=== PATIENT | female | born 1970 | race Two or more races ===

== ENCOUNTER → 2024-11-05 | Outpatient (CLI) | payer MEDICARE | LOC: M RAD 14:30 | PROVIDERS: ATTEND Dermatology | DX: M85.842 Other specified disorders of bone density and structure, left hand (principal) ==

== ENCOUNTER → 2024-12-06 | Outpatient (CLI) | payer MEDICARE | LOC: M PLAIMG 06:37 | PROVIDERS: ATTEND Dermatology | DX: D09.9 Carcinoma in situ, unspecified (principal) ==

== ENCOUNTER → 2025-02-28 | Outpatient (REF) | payer MEDICARE | LOC: M SFHCDERM 16:37 | PROVIDERS: ATTEND Dermatology | DX: L08.9 Local infection of the skin and subcutaneous tissue, unspecified (principal) ==